=== PATIENT | female | born 1995 | race Caucasian/White ===

== ENCOUNTER 2018-10-03 18:54 | Observation (INO) | payer BC, SELFPAY ==
[2018-10-03] VITALS (12 sets, daily range): BP systolic 109–153; BP diastolic 60–99; PULSE 106–130; RESP 11–25; TEMP 36.8–39.2; O2SAT 95–100; BMI 28.3; BMI 30.7
--- NOTE | 2018-10-03 19:13 | DI.RAD.S_ITS ---
PROCEDURE: XR CHEST 2V INDICATIONS: Cough, high fever, SOB TECHNIQUE: 2 views of the chest were acquired. COMPARISON: None. FINDINGS: Surgical changes and devices: None. Lungs and pleura: Lung volumes are low. Mild right infrahilar alveolar opacity. The left lung is clear No pleural effusions or pneumothorax. Mediastinum: Mediastinal contours are normal. Heart size is normal. Bones and chest wall: No suspicious bony abnormalities. Soft tissues appear unremarkable. IMPRESSION: Right middle lobe alveolar opacities suggestive of pneumonia. No pleural effusion. Dictated by: Vera Rodgers M.D. on 10/03/2018 at 20:33 Approved by: Vera Rodgers M.D. on 10/03/2018 at 20:34
--- NOTE | 2018-10-03 19:20 | ED_ITS ---
HPI - SOB/Dyspnea <VILMA Cruz - Last Filed: 10/03/18 22:08> General Chief Complaint: Shortness of Breath/Dyspnea Stated Complaint: High fever, chest congestion, cough Time Seen by Provider: 10/03/18 19:03 Source: patient Mode of arrival: ambulatory Limitations: no limitations History of Present Illness 23-year-old female with a past medical history of asthma as a child, tonsil abscess within the last 2 weeks which was treated and resolved in the last week, now presents to the emergency department today complaining of a cough that has increased in the past 2 days with associated fever as high as 103.2F, shortness of breath, and decreased appetite for the past 2 days. Patient was on a cruise last week which she was taking steroids and clindamycin for her tonsil abscess that resolved. She states today she felt very short of breath which prompted her to come to the emergency department. Patient reports severe cough with clear mucus production, shortness of breath with exertion, and muscle aches. Patient states she is allergic to the pertussis vaccine and therefore was not given this vaccine after 1 administration as an infant. Denies chest pain, abdominal pain, vomiting, loose stools, swelling in ankles, or syncope. She did try taking 1 dose of [id number] cold medication, but this has not helped. MD Complaint: shortness of breath and cough Severity: moderate Consistency/Duration: constant Relieving factors: nothing Exacerbating factors: other (Deep breath) Known history of: asthma Associated symptoms: other (Fevers) Treatment prior to arrival: none Related Data Home Medications Medication Instructions Recorded Confirmed No Known Home Medications 10/03/18 10/03/18 Allergies Allergy/AdvReac Type Severity Reaction Status Date / Time Pertussis Vaccines Allergy Verified 10/03/18 19:00 red dye Allergy Verified 10/03/18 19:00 Review of Systems <VILMA Cruz - Last Filed: 10/03/18 22:08> Review of Systems REVIEW OF SYSTEMS: GENERAL: Complains of fevers, see HPI. HENT: No head trauma, hearing loss or sore throat. EYES: No loss of vision, double vision, eye pain, or irritation. CARDIOVASCULAR: No chest pain or syncope. RESPIRATORY: Complains of shortness of breath and cough, see HPI. GASTROINTESTINAL: Complains of decreased appetite, see HPI. GENITOURINARY: No flank pain or dysuria. MUSCULOSKELETAL: No pain, weakness, or deformities. INTEGUMENTARY: No rash, lesions, or pruritus. NEURO: No numbness, tingling, memory loss, or confusion. PSYCH: No behavior or mood changes. PFSH <VILMA Cruz - Last Filed: 10/03/18 22:08> Medical History Tonsillar abscess (Acute) Asthma (Chronic) Social History Smoking Status: Never smoker Social History household members: family Smoking Status: Never smoker Exam <VILMA Cruz - Last Filed: 10/03/18 22:08> Initial Vital Signs Initial Vital Signs: Vital Signs Temperature 102.5 F H 10/03/18 19:06 Pulse Rate 130 H 10/03/18 19:06 Respiratory Rate 22 10/03/18 19:06 Blood Pressure 153/99 H 10/03/18 19:06 Pulse Oximetry 100 10/03/18 19:06 PHYSICAL EXAMINATION: GENERAL: Well groomed, alert, and cooperative. Answers questions promptly and appropriately. Vital signs noted. HENT: Normocephalic, atraumatic. Ear canals patent, tympanic membranes normal without irritation or effusion, crisp light reflex present. Oral mucosa is pink and moist, no caries or lesions present. Pharynx erythematous. Uvula midline. Tonsils 1+. EYES: PERRLA, conjunctiva pink, sclera white, no periorbital swelling. NECK: Full range of motion, nontender. LYMPH: Slight swelling and tenderness to submandibular glands. CHEST: Normal to inspection and without deformities. CARDIOVASCULAR: S1 and S2 sounds normal. Regular rate and rhythm, no murmurs, clicks, or bruits. No pedal edema. RESPIRATORY: Slightly increased respiratory rate, trachea midline, airway patent. Constant barking cough noted during exam, patient cough small amount of clear mucus in to tissues. Decreased air movement in the bases, coarse lung sounds noted, difficult to assess for crackles or wheeze due to constant cough 1 patient takes a deep breath. No stridor, nasal flaring or accessory muscle use. GASTROINTESTINAL: Bowel sounds normoactive. Abdomen is soft and non-tender. No organomegaly. MUSCULOSKELETAL: Normal gait and coordination. Equal tone and mass bilaterally. EXTREMITIES: CMS intact. Moves all extremities. SKIN: Warm, dry, soft, appropriate color for ethnicity. No lesions, rashes, or wounds. NEURO: Alert and Oriented X 3. Good coordination. No ataxia, or sensory deficits, or cognitive issues. PSYCH: Appropriate affect and mood. <Sha Hassan DO - Last Filed: 10/04/18 01:27> Initial Vital Signs Initial Vital Signs: Vital Signs Temperature 102.5 F H 10/03/18 19:06 Pulse Rate 130 H 10/03/18 19:06 Respiratory Rate 22 10/03/18 19:06 Blood Pressure 153/99 H 10/03/18 19:06 Pulse Oximetry 100 10/03/18 19:06 Scores <VILMA Cruz - Last Filed: 10/03/18 22:08> CURB-65 Confusion: No BUN >19mg/dL (>7mmol/L): No Respiratory rate greater or equal to 30: No SBP <90mmHg or DBP less or equal to 60mmHg: No Age 65 or Older: No CURB-65 Total: 0 Score 0-1 Outpatient care, Score 2 Inpt vs. Obs, Score 3 or over Inpt admit with ICU for score of 4-5 Course <VILMA Cruz - Last Filed: 10/03/18 22:08> Course Narrative: . Orders Ordered: ED Orders 10/03/18 19:02 Urine Culture Stat Urine Microscopic Stat 10/03/18 19:13 XR chest 2V Stat 10/03/18 19:15 Bordetella pertussis PCR Stat 10/03/18 19:40 C-Reactive Protein Quant Routine Complete Blood Count AUTO DIFF Stat Comprehensive Metabolic Panel Stat Erythrocyte Sedimentation Rate Routine Influenza A and B by PCR Rapid Stat Lactate (Lactic Acid) Stat Procalcitonin Stat Troponin & CK Cardiac Panel Stat 10/03/18 20:17 Blood Culture Stat 10/03/18 22:49 Urine Drug Screen, Rapid Urgent 10/03/18 23:05 EKG-12 Lead Urgent 10/04/18 00:35 Blood Culture Stat 10/04/18 01:30 Blood Culture Stat Acetaminophen (Tylenol) 650 mg PO Q6HR PRN PRN Reason: As Needed for Fever/Mild Pain Albuterol (Ventolin) 2.5 mg INH RTTID PRN PRN Reason: Bronchospasm Benzonatate (Tessalon Perles) 100 mg PO TID PRN PRN Reason: Cough Ondansetron HCl (Zofran) 4 mg IV Q8HR PRN PRN Reason: Nausea And Vomiting Oseltamivir Phosphate (Tamiflu) 75 mg PO BID SANDRA Discontinued Medications Acetaminophen (Tylenol) 975 mg PO NOW ONE Stop: 10/03/18 20:26 Last Admin: 10/03/18 20:31 Dose: 975 mg Albuterol/Ipratropium (Duoneb) 3 ml INH NOW ONE Stop: 10/03/18 20:29 Last Admin: 10/03/18 20:42 Dose: 3 ml Sodium Chloride (Normal Saline 0.9%) 1,000 mls @ 1,000 mls/hr IV BOLUS ONE Stop: 10/03/18 20:12 Last Infusion: 10/03/18 20:30 Dose: 1,000 mls/hr Admin: 10/03/18 19:34 Dose: 1,000 mls/hr Sodium Chloride (Normal Saline 0.9%) 1,000 mls @ 1,000 mls/hr IV BOLUS ONE Stop: 10/03/18 21:24 Last Infusion: 10/03/18 21:41 Dose: 1,000 mls/hr Admin: 10/03/18 20:30 Dose: 1,000 mls/hr Levofloxacin (Levaquin) 750 mg in 150 mls @ 100 mls/hr IV NOW ONE Stop: 10/03/18 22:41 Last Infusion: 10/03/18 22:40 Dose: 100 mls/hr Admin: 10/03/18 21:30 Dose: 100 mls/hr Ibuprofen (Advil) 800 mg PO NOW ONE Stop: 10/03/18 19:14 Last Admin: 10/03/18 19:34 Dose: 800 mg Ondansetron HCl (Zofran) 4 mg IV NOW ONE Stop: 10/03/18 22:08 Last Admin: 10/03/18 22:09 Dose: 4 mg Oseltamivir Phosphate (Tamiflu) 75 mg PO NOW ONE Stop: 10/03/18 21:13 Last Admin: 10/03/18 21:30 Dose: 75 mg Reevaluation(s) Reevaluation #1: Patient remains tachycardic in the 120 after administration of 2 L of fluid, 800 mg of ibuprofen, and 975 mg of acetaminophen. Patient states she continues to feel short of breath with chest tightness even after administration of nebulizing treatment, decreased lung sounds remain Consultations Consultation #1: Patient staffed with Dr. Hassan who agrees patient should be admitted. Consultation #2: [address] [place] hospitalist for possible admission, due to continued tachycardia after interventions, multiple infections, and sustained shortness of breath.. 2199 spoke with hospitalist, ZOIE Mccauley agrees to admit patient. Vital Signs - 8 hr 10/03/18 19:06 10/03/18 19:34 10/03/18 20:22 Temperature 102.5 F H 102.5 F H 101 F H Pulse Rate 130 H Respiratory Rate 22 Blood Pressure Blood Pressure [Right Arm] 153/99 H Pulse Oximetry 100 10/03/18 20:31 10/03/18 20:32 10/03/18 20:35 Temperature 101 F H 101 F H Pulse Rate 113 H Respiratory Rate 21 Blood Pressure Blood Pressure [Right Arm] 130/88 Pulse Oximetry 99 10/03/18 21:00 10/03/18 21:18 10/03/18 21:39 Temperature Pulse Rate 125 H 126 H 126 H Respiratory Rate 25 H 11 L 17 Blood Pressure Blood Pressure [Right Arm] 125/60 125/60 109/63 Pulse Oximetry 95 95 99 10/03/18 22:10 10/03/18 22:30 10/03/18 23:10 Temperature 100.0 F H 98.3 F Pulse Rate 110 H 106 H Respiratory Rate 23 19 Blood Pressure 119/73 Blood Pressure [Right Arm] 110/72 Pulse Oximetry 100 98 <Sha Hassan, DO - Last Filed: 10/04/18 01:27> Orders Ordered: ED Orders 10/03/18 19:02 Urine Culture Stat Urine Microscopic Stat 10/03/18 19:13 XR chest 2V Stat 10/03/18 19:15 Bordetella pertussis PCR Stat 10/03/18 19:40 C-Reactive Protein Quant Routine Complete Blood Count AUTO DIFF Stat Comprehensive Metabolic Panel Stat Erythrocyte Sedimentation Rate Routine Influenza A and B by PCR Rapid Stat Lactate (Lactic Acid) Stat Procalcitonin Stat Troponin & CK Cardiac Panel Stat 10/03/18 20:17 Blood Culture Stat 10/03/18 22:49 Urine Drug Screen, Rapid Urgent 10/03/18 23:05 EKG-12 Lead Urgent 10/04/18 00:35 Blood Culture Stat 10/04/18 01:30 Blood Culture Stat Acetaminophen (Tylenol) 650 mg PO Q6HR PRN PRN Reason: As Needed for Fever/Mild Pain Albuterol (Ventolin) 2.5 mg INH RTTID PRN PRN Reason: Bronchospasm Benzonatate (Tessalon Perles) 100 mg PO TID PRN PRN Reason: Cough Ondansetron HCl (Zofran) 4 mg IV Q8HR PRN PRN Reason: Nausea And Vomiting Oseltamivir Phosphate (Tamiflu) 75 mg PO BID SANDRA Discontinued Medications Acetaminophen (Tylenol) 975 mg PO NOW ONE Stop: 10/03/18 20:26 Last Admin: 10/03/18 20:31 Dose: 975 mg Albuterol/Ipratropium (Duoneb) 3 ml INH NOW ONE Stop: 10/03/18 20:29 Last Admin: 10/03/18 20:42 Dose: 3 ml Sodium Chloride (Normal Saline 0.9%) 1,000 mls @ 1,000 mls/hr IV BOLUS ONE Stop: 10/03/18 20:12 Last Infusion: 10/03/18 20:30 Dose: 1,000 mls/hr Admin: 10/03/18 19:34 Dose: 1,000 mls/hr Sodium Chloride (Normal Saline 0.9%) 1,000 mls @ 1,000 mls/hr IV BOLUS ONE Stop: 10/03/18 21:24 Last Infusion: 10/03/18 21:41 Dose: 1,000 mls/hr Admin: 10/03/18 20:30 Dose: 1,000 mls/hr Levofloxacin (Levaquin) 750 mg in 150 mls @ 100 mls/hr IV NOW ONE Stop: 10/03/18 22:41 Last Infusion: 10/03/18 22:40 Dose: 100 mls/hr Admin: 10/03/18 21:30 Dose: 100 mls/hr Ibuprofen (Advil) 800 mg PO NOW ONE Stop: 10/03/18 19:14 Last Admin: 10/03/18 19:34 Dose: 800 mg Ondansetron HCl (Zofran) 4 mg IV NOW ONE Stop: 10/03/18 22:08 Last Admin: 10/03/18 22:09 Dose: 4 mg Oseltamivir Phosphate (Tamiflu) 75 mg PO NOW ONE Stop: 10/03/18 21:13 Last Admin: 10/03/18 21:30 Dose: 75 mg Vital Signs - 8 hr 10/03/18 19:06 10/03/18 19:34 10/03/18 20:22 Temperature 102.5 F H 102.5 F H 101 F H Pulse Rate 130 H Respiratory Rate 22 Blood Pressure Blood Pressure [Right Arm] 153/99 H Pulse Oximetry 100 10/03/18 20:31 10/03/18 20:32 10/03/18 20:35 Temperature 101 F H 101 F H Pulse Rate 113 H Respiratory Rate 21 Blood Pressure Blood Pressure [Right Arm] 130/88 Pulse Oximetry 99 10/03/18 21:00 10/03/18 21:18 10/03/18 21:39 Temperature Pulse Rate 125 H 126 H 126 H Respiratory Rate 25 H 11 L 17 Blood Pressure Blood Pressure [Right Arm] 125/60 125/60 109/63 Pulse Oximetry 95 95 99 10/03/18 22:10 10/03/18 22:30 10/03/18 23:10 Temperature 100.0 F H 98.3 F Pulse Rate 110 H 106 H Respiratory Rate 23 19 Blood Pressure 119/73 Blood Pressure [Right Arm] 110/72 Pulse Oximetry 100 98 MDM - SOB/Dyspnea <Elena VILMA Spence - Last Filed: 10/03/18 22:08> Medical Records Attestation: I reviewed the patient's medical records. Lab Data Attestation: I reviewed the patient's lab results. Result diagrams: 10/03/18 19:40 10/03/18 19:40 Lab Results 10/03/18 10/03/18 10/03/18 Range/Units 19:02 19:40 19:40 WBC 10.6 (4.5-11.0) X10^3/uL RBC 4.56 (4.0-5.2) X10^6/uL Hgb 14.1 (12.0-16.0) g/dL Hct 41.8 (36-46) % MCV 91.6 (80-100) fL MCH 30.8 (26-34) PG MCHC 33.7 (30-36) % RDW 13.5 (11.6-14.8) % Plt Count 219 (150-400) X10^3/uL Neut % (Auto) 79.9 H (50-75) % Lymph % (Auto) 8.8 L (25-40) % [place] % (Auto) 10.5 (3-14) % Eos % (Auto) 0.2 L (2-4) % Baso % (Auto) 0.6 (0-2) % Neut # (Auto) 8400 H (5106-4908) /uL Lymph # (Auto) 900 L (1613-1823) /uL [place] # (Auto) 1100 H (0-900) /uL Eos # (Auto) 0 (0-450) /uL Baso # (Auto) 100 (0-100) /uL ESR (0-20) MM/HR Sodium 139 (137-145) mmol/L Potassium 4.4 (3.4-5.1) mmol/L Chloride 98 (98-107) mmol/L Carbon Dioxide 29 (22-32) mmol/L BUN 4 L (7-17) mg/dL Creatinine 0.70 (0.52-1.04) mg/dL Estimated GFR > 60.0 (>60) mL/min BUN/Creatinine Ratio 5.7 L (6-22) Glucose 114 H (70-100) mg/dL Lactate (0.7-2.1) mmol/L Calcium 9.8 (8.4-10.2) mg/dL Total Bilirubin 0.6 (0.2-1.3) mg/dL AST 69 H (14-36) IU/L ALT 61 H (9-52) IU/L Alkaline Phosphatase 108 (38-126) U/L Total Creatine Kinase (30-135) U/L CK-MB (CK-2) CK-MB (CK-2) Rel Index Troponin I (0.01-0.034) ng/mL C-Reactive Protein (<1.0) mg/dL Total Protein 9.4 H (6.3-8.2) g/dL Albumin 4.9 (3.5-5.0) g/dL Globulin 4.5 H (1.7-4.1) g/dL Albumin/Globulin Ratio 1.1 (1.0-2.8) Procalcitonin (<0.5) ng/mL Urine RBC 0-1/hpf (0-5/HPF) Urine WBC 10-30/hpf H (0-5/HPF) Ur Squamous Epith Cells 1-5 /hpf (0-5/HPF) Ur Transition Epith Cell 1-5/hpf (0-5/HPF) Urine Bacteria Moderate (10-30) H (None) Ur Culture Indicated? Specimen cultured Urine Opiates Screen (Negative) Ur Oxycodone Screen (Negative) Urine Methadone Screen (Negative) Ur Barbiturates Screen (Negative) U Tricyclic Antidepress (Negative) Ur Phencyclidine Scrn (Negative) Ur Amphetamines Screen (Negative) U Methamphetamines Scrn (Negative) Ur MDMA Scrn (Ecstasy) (Negative) U Benzodiazepines Scrn (Negative) Urine Cocaine Screen (Negative) U Marijuana (THC) Screen (Negative) Influenza A & B (PCR) (Negative) 10/03/18 10/03/18 10/03/18 Range/Units 19:40 19:40 19:40 WBC (4.5-11.0) X10^3/uL RBC (4.0-5.2) X10^6/uL Hgb (12.0-16.0) g/dL Hct (36-46) % MCV (80-100) fL MCH (26-34) PG MCHC (30-36) % RDW (11.6-14.8) % Plt Count (150-400) X10^3/uL Neut % (Auto) (50-75) % Lymph % (Auto) (25-40) % [place] % (Auto) (3-14) % Eos % (Auto) (2-4) % Baso % (Auto) (0-2) % Neut # (Auto) (7973-0120) /uL Lymph # (Auto) (1002-3941) /uL [place] # (Auto) (0-900) /uL Eos # (Auto) (0-450) /uL Baso # (Auto) (0-100) /uL ESR (0-20) MM/HR Sodium (137-145) mmol/L Potassium (3.4-5.1) mmol/L Chloride (98-107) mmol/L Carbon Dioxide (22-32) mmol/L BUN (7-17) mg/dL Creatinine (0.52-1.04) mg/dL Estimated GFR (>60) mL/min BUN/Creatinine Ratio (6-22) Glucose (70-100) mg/dL Lactate 1.6 (0.7-2.1) mmol/L Calcium (8.4-10.2) mg/dL Total Bilirubin (0.2-1.3) mg/dL AST (14-36) IU/L ALT (9-52) IU/L Alkaline Phosphatase (38-126) U/L Total Creatine Kinase (30-135) U/L CK-MB (CK-2) CK-MB (CK-2) Rel Index Troponin I (0.01-0.034) ng/mL C-Reactive Protein (<1.0) mg/dL Total Protein (6.3-8.2) g/dL Albumin (3.5-5.0) g/dL Globulin (1.7-4.1) g/dL Albumin/Globulin Ratio (1.0-2.8) Procalcitonin 0.06 (<0.5) ng/mL Urine RBC (0-5/HPF) Urine WBC (0-5/HPF) Ur Squamous Epith Cells (0-5/HPF) Ur Transition Epith Cell (0-5/HPF) Urine Bacteria (None) Ur Culture Indicated? Urine Opiates Screen (Negative) Ur Oxycodone Screen (Negative) Urine Methadone Screen (Negative) Ur Barbiturates Screen (Negative) U Tricyclic Antidepress (Negative) Ur Phencyclidine Scrn (Negative) Ur Amphetamines Screen (Negative) U Methamphetamines Scrn (Negative) Ur MDMA Scrn (Ecstasy) (Negative) U Benzodiazepines Scrn (Negative) Urine Cocaine Screen (Negative) U Marijuana (THC) Screen (Negative) Influenza A & B (PCR) Positive, type a H (Negative) 10/03/18 10/03/18 10/03/18 Range/Units 19:40 19:40 19:40 WBC (4.5-11.0) X10^3/uL RBC (4.0-5.2) X10^6/uL Hgb (12.0-16.0) g/dL Hct (36-46) % MCV (80-100) fL MCH (26-34) PG MCHC (30-36) % RDW (11.6-14.8) % Plt Count (150-400) X10^3/uL Neut % (Auto) (50-75) % Lymph % (Auto) (25-40) % [place] % (Auto) (3-14) % Eos % (Auto) (2-4) % Baso % (Auto) (0-2) % Neut # (Auto) (8670-5883) /uL Lymph # (Auto) (2705-5400) /uL [place] # (Auto) (0-900) /uL Eos # (Auto) (0-450) /uL Baso # (Auto) (0-100) /uL ESR 28 H (0-20) MM/HR Sodium (137-145) mmol/L Potassium (3.4-5.1) mmol/L Chloride (98-107) mmol/L Carbon Dioxide (22-32) mmol/L BUN (7-17) mg/dL Creatinine (0.52-1.04) mg/dL Estimated GFR (>60) mL/min BUN/Creatinine Ratio (6-22) Glucose (70-100) mg/dL Lactate (0.7-2.1) mmol/L Calcium (8.4-10.2) mg/dL Total Bilirubin (0.2-1.3) mg/dL AST (14-36) IU/L ALT (9-52) IU/L Alkaline Phosphatase (38-126) U/L Total Creatine Kinase 30 (30-135) U/L CK-MB (CK-2) TNP CK-MB (CK-2) Rel Index TNP Troponin I < 0.012 (0.01-0.034) ng/mL C-Reactive Protein 4.2 H (<1.0) mg/dL Total Protein (6.3-8.2) g/dL Albumin (3.5-5.0) g/dL Globulin (1.7-4.1) g/dL Albumin/Globulin Ratio (1.0-2.8) Procalcitonin (<0.5) ng/mL Urine RBC (0-5/HPF) Urine WBC (0-5/HPF) Ur Squamous Epith Cells (0-5/HPF) Ur Transition Epith Cell (0-5/HPF) Urine Bacteria (None) Ur Culture Indicated? Urine Opiates Screen (Negative) Ur Oxycodone Screen (Negative) Urine Methadone Screen (Negative) Ur Barbiturates Screen (Negative) U Tricyclic Antidepress (Negative) Ur Phencyclidine Scrn (Negative) Ur Amphetamines Screen (Negative) U Methamphetamines Scrn (Negative) Ur MDMA Scrn (Ecstasy) (Negative) U Benzodiazepines Scrn (Negative) Urine Cocaine Screen (Negative) U Marijuana (THC) Screen (Negative) Influenza A & B (PCR) (Negative) 10/04/18 Range/Units 00:29 WBC (4.5-11.0) X10^3/uL RBC (4.0-5.2) X10^6/uL Hgb (12.0-16.0) g/dL Hct (36-46) % MCV (80-100) fL MCH (26-34) PG MCHC (30-36) % RDW (11.6-14.8) % Plt Count (150-400) X10^3/uL Neut % (Auto) (50-75) % Lymph % (Auto) (25-40) % [place] % (Auto) (3-14) % Eos % (Auto) (2-4) % Baso % (Auto) (0-2) % Neut # (Auto) (4797-8060) /uL Lymph # (Auto) (5046-3222) /uL [place] # (Auto) (0-900) /uL Eos # (Auto) (0-450) /uL Baso # (Auto) (0-100) /uL ESR (0-20) MM/HR Sodium (137-145) mmol/L Potassium (3.4-5.1) mmol/L Chloride (98-107) mmol/L Carbon Dioxide (22-32) mmol/L BUN (7-17) mg/dL Creatinine (0.52-1.04) mg/dL Estimated GFR (>60) mL/min BUN/Creatinine Ratio (6-22) Glucose (70-100) mg/dL Lactate (0.7-2.1) mmol/L Calcium (8.4-10.2) mg/dL Total Bilirubin (0.2-1.3) mg/dL AST (14-36) IU/L ALT (9-52) IU/L Alkaline Phosphatase (38-126) U/L Total Creatine Kinase (30-135) U/L CK-MB (CK-2) CK-MB (CK-2) Rel Index Troponin I (0.01-0.034) ng/mL C-Reactive Protein (<1.0) mg/dL Total Protein (6.3-8.2) g/dL Albumin (3.5-5.0) g/dL Globulin (1.7-4.1) g/dL Albumin/Globulin Ratio (1.0-2.8) Procalcitonin (<0.5) ng/mL Urine RBC (0-5/HPF) Urine WBC (0-5/HPF) Ur Squamous Epith Cells (0-5/HPF) Ur Transition Epith Cell (0-5/HPF) Urine Bacteria (None) Ur Culture Indicated? Urine Opiates Screen Positive H (Negative) Ur Oxycodone Screen Negative (Negative) Urine Methadone Screen Negative (Negative) Ur Barbiturates Screen Negative (Negative) U Tricyclic Antidepress Negative (Negative) Ur Phencyclidine Scrn Negative (Negative) Ur Amphetamines Screen Negative (Negative) U Methamphetamines Scrn Negative (Negative) Ur MDMA Scrn (Ecstasy) Negative (Negative) U Benzodiazepines Scrn Negative (Negative) Urine Cocaine Screen Negative (Negative) U Marijuana (THC) Screen Negative (Negative) Influenza A & B (PCR) (Negative) Point of Care Testing Test Results Negative Urine Dip Bedside Urine Glucose Negative Bedside Urine Bilirubin - Negative Bedside Urine Ketone - Negative Urine Specific [place] 1.025 Bedside Urine Occult Blood - Negative Bedside Urine pH 6.0 Bedside Urine Protein +/- 15 Bedside Urine Urobilinogen - Negative Bedside Urine Nitrite - Negative Bedside Urine Leukocytes ++ 125 Esterase Imaging Data Chest x-ray: Attestation: I personally reviewed and interpreted this imaging study as follows: Radiologist's impression: [address] [address] XRay Report Signed Patient: Jessica Ngo [facility]#: [id number] : 1995Acct:[id number] Age/Sex: 23 / FDate of Service: 10/03/18 Loc: ED Accession Number: [id number] Procedure: XR chest 2V Ordering Provider: Elena Spence PROCEDURE: XR CHEST 2V INDICATIONS: Cough, high fever, SOB TECHNIQUE: 2 views of the chest were acquired. COMPARISON: None. FINDINGS: Surgical changes and devices: None. Lungs and pleura: Lung volumes are low. Mild right infrahilar alveolar opacity. The left lung is clear No pleural effusions or pneumothorax. Mediastinum: Mediastinal contours are normal. Heart size is normal. Bones and chest wall: No suspicious bony abnormalities. Soft tissues appear unremarkable. IMPRESSION: Right middle lobe alveolar opacities suggestive of pneumonia. No pleural effusion. Dictated by: Vera Rodgers M.D. on 10/03/2018 at 20:33 Approved by: Vera Rodgers M.D. on 10/03/2018 at 20:34 MDM Narrative Medical decision making narrative: Suspect that patient has urinary tract infection, pneumonia, and influenza due to fevers, positive white blood cells on urinalysis as well as bacteria seen, positive influenza test, upper respiratory symptoms, and positive opacities on exam, as well as history of pneumonia and comorbidities such as asthma. Fall patient's lactic a procalcitonin remain within normal limits, her tachycardia has persisted throughout treatment of fever with ibuprofen, Tylenol, and after 2 L of fluid administration. Spoke with hospitalist, patient and manage for persistent tachycardia. <Sha Hassan DO - Last Filed: 10/04/18 01:27> Lab Data Lab Results 10/03/18 10/03/18 10/03/18 Range/Units 19:02 19:40 19:40 WBC 10.6 (4.5-11.0) X10^3/uL RBC 4.56 (4.0-5.2) X10^6/uL Hgb 14.1 (12.0-16.0) g/dL Hct 41.8 (36-46) % MCV 91.6 (80-100) fL MCH 30.8 (26-34) PG MCHC 33.7 (30-36) % RDW 13.5 (11.6-14.8) % Plt Count 219 (150-400) X10^3/uL Neut % (Auto) 79.9 H (50-75) % Lymph % (Auto) 8.8 L (25-40) % [place] % (Auto) 10.5 (3-14) % Eos % (Auto) 0.2 L (2-4) % Baso % (Auto) 0.6 (0-2) % Neut # (Auto) 8400 H (9356-1300) /uL Lymph # (Auto) 900 L (1965-6083) /uL [place] # (Auto) 1100 H (0-900) /uL Eos # (Auto) 0 (0-450) /uL Baso # (Auto) 100 (0-100) /uL ESR (0-20) MM/HR Sodium 139 (137-145) mmol/L Potassium 4.4 (3.4-5.1) mmol/L Chloride 98 (98-107) mmol/L Carbon Dioxide 29 (22-32) mmol/L BUN 4 L (7-17) mg/dL Creatinine 0.70 (0.52-1.04) mg/dL Estimated GFR > 60.0 (>60) mL/min BUN/Creatinine Ratio 5.7 L (6-22) Glucose 114 H (70-100) mg/dL Lactate (0.7-2.1) mmol/L Calcium 9.8 (8.4-10.2) mg/dL Total Bilirubin 0.6 (0.2-1.3) mg/dL AST 69 H (14-36) IU/L ALT 61 H (9-52) IU/L Alkaline Phosphatase 108 (38-126) U/L Total Creatine Kinase (30-135) U/L CK-MB (CK-2) CK-MB (CK-2) Rel Index Troponin I (0.01-0.034) ng/mL C-Reactive Protein (<1.0) mg/dL Total Protein 9.4 H (6.3-8.2) g/dL Albumin 4.9 (3.5-5.0) g/dL Globulin 4.5 H (1.7-4.1) g/dL Albumin/Globulin Ratio 1.1 (1.0-2.8) Procalcitonin (<0.5) ng/mL Urine RBC 0-1/hpf (0-5/HPF) Urine WBC 10-30/hpf H (0-5/HPF) Ur Squamous Epith Cells 1-5 /hpf (0-5/HPF) Ur Transition Epith Cell 1-5/hpf (0-5/HPF) Urine Bacteria Moderate (10-30) H (None) Ur Culture Indicated? Specimen cultured Urine Opiates Screen (Negative) Ur Oxycodone Screen (Negative) Urine Methadone Screen (Negative) Ur Barbiturates Screen (Negative) U Tricyclic Antidepress (Negative) Ur Phencyclidine Scrn (Negative) Ur Amphetamines Screen (Negative) U Methamphetamines Scrn (Negative) Ur MDMA Scrn (Ecstasy) (Negative) U Benzodiazepines Scrn (Negative) Urine Cocaine Screen (Negative) U Marijuana (THC) Screen (Negative) Influenza A & B (PCR) (Negative) 10/03/18 10/03/18 10/03/18 Range/Units 19:40 19:40 19:40 WBC (4.5-11.0) X10^3/uL RBC (4.0-5.2) X10^6/uL Hgb (12.0-16.0) g/dL Hct (36-46) % MCV (80-100) fL MCH (26-34) PG MCHC (30-36) % RDW (11.6-14.8) % Plt Count (150-400) X10^3/uL Neut % (Auto) (50-75) % Lymph % (Auto) (25-40) % [place] % (Auto) (3-14) % Eos % (Auto) (2-4) % Baso % (Auto) (0-2) % Neut # (Auto) (8657-6384) /uL Lymph # (Auto) (4248-3344) /uL [place] # (Auto) (0-900) /uL Eos # (Auto) (0-450) /uL Baso # (Auto) (0-100) /uL ESR (0-20) MM/HR Sodium (137-145) mmol/L Potassium (3.4-5.1) mmol/L Chloride (98-107) mmol/L Carbon Dioxide (22-32) mmol/L BUN (7-17) mg/dL Creatinine (0.52-1.04) mg/dL Estimated GFR (>60) mL/min BUN/Creatinine Ratio (6-22) Glucose (70-100) mg/dL Lactate 1.6 (0.7-2.1) mmol/L Calcium (8.4-10.2) mg/dL Total Bilirubin (0.2-1.3) mg/dL AST (14-36) IU/L ALT (9-52) IU/L Alkaline Phosphatase (38-126) U/L Total Creatine Kinase (30-135) U/L CK-MB (CK-2) CK-MB (CK-2) Rel Index Troponin I (0.01-0.034) ng/mL C-Reactive Protein (<1.0) mg/dL Total Protein (6.3-8.2) g/dL Albumin (3.5-5.0) g/dL Globulin (1.7-4.1) g/dL Albumin/Globulin Ratio (1.0-2.8) Procalcitonin 0.06 (<0.5) ng/mL Urine RBC (0-5/HPF) Urine WBC (0-5/HPF) Ur Squamous Epith Cells (0-5/HPF) Ur Transition Epith Cell (0-5/HPF) Urine Bacteria (None) Ur Culture Indicated? Urine Opiates Screen (Negative) Ur Oxycodone Screen (Negative) Urine Methadone Screen (Negative) Ur Barbiturates Screen (Negative) U Tricyclic Antidepress (Negative) Ur Phencyclidine Scrn (Negative) Ur Amphetamines Screen (Negative) U Methamphetamines Scrn (Negative) Ur MDMA Scrn (Ecstasy) (Negative) U Benzodiazepines Scrn (Negative) Urine Cocaine Screen (Negative) U Marijuana (THC) Screen (Negative) Influenza A & B (PCR) Positive, type a H (Negative) 10/03/18 10/03/18 10/03/18 Range/Units 19:40 19:40 19:40 WBC (4.5-11.0) X10^3/uL RBC (4.0-5.2) X10^6/uL Hgb (12.0-16.0) g/dL Hct (36-46) % MCV (80-100) fL MCH (26-34) PG MCHC (30-36) % RDW (11.6-14.8) % Plt Count (150-400) X10^3/uL Neut % (Auto) (50-75) % Lymph % (Auto) (25-40) % [place] % (Auto) (3-14) % Eos % (Auto) (2-4) % Baso % (Auto) (0-2) % Neut # (Auto) (5915-3851) /uL Lymph # (Auto) (2470-5717) /uL [place] # (Auto) (0-900) /uL Eos # (Auto) (0-450) /uL Baso # (Auto) (0-100) /uL ESR 28 H (0-20) MM/HR Sodium (137-145) mmol/L Potassium (3.4-5.1) mmol/L Chloride (98-107) mmol/L Carbon Dioxide (22-32) mmol/L BUN (7-17) mg/dL Creatinine (0.52-1.04) mg/dL Estimated GFR (>60) mL/min BUN/Creatinine Ratio (6-22) Glucose (70-100) mg/dL Lactate (0.7-2.1) mmol/L Calcium (8.4-10.2) mg/dL Total Bilirubin (0.2-1.3) mg/dL AST (14-36) IU/L ALT (9-52) IU/L Alkaline Phosphatase (38-126) U/L Total Creatine Kinase 30 (30-135) U/L CK-MB (CK-2) TNP CK-MB (CK-2) Rel Index TNP Troponin I < 0.012 (0.01-0.034) ng/mL C-Reactive Protein 4.2 H (<1.0) mg/dL Total Protein (6.3-8.2) g/dL Albumin (3.5-5.0) g/dL Globulin (1.7-4.1) g/dL Albumin/Globulin Ratio (1.0-2.8) Procalcitonin (<0.5) ng/mL Urine RBC (0-5/HPF) Urine WBC (0-5/HPF) Ur Squamous Epith Cells (0-5/HPF) Ur Transition Epith Cell (0-5/HPF) Urine Bacteria (None) Ur Culture Indicated? Urine Opiates Screen (Negative) Ur Oxycodone Screen (Negative) Urine Methadone Screen (Negative) Ur Barbiturates Screen (Negative) U Tricyclic Antidepress (Negative) Ur Phencyclidine Scrn (Negative) Ur Amphetamines Screen (Negative) U Methamphetamines Scrn (Negative) Ur MDMA Scrn (Ecstasy) (Negative) U Benzodiazepines Scrn (Negative) Urine Cocaine Screen (Negative) U Marijuana (THC) Screen (Negative) Influenza A & B (PCR) (Negative) 10/04/18 Range/Units 00:29 WBC (4.5-11.0) X10^3/uL RBC (4.0-5.2) X10^6/uL Hgb (12.0-16.0) g/dL Hct (36-46) % MCV (80-100) fL MCH (26-34) PG MCHC (30-36) % RDW (11.6-14.8) % Plt Count (150-400) X10^3/uL Neut % (Auto) (50-75) % Lymph % (Auto) (25-40) % [place] % (Auto) (3-14) % Eos % (Auto) (2-4) % Baso % (Auto) (0-2) % Neut # (Auto) (9081-9684) /uL Lymph # (Auto) (8131-5859) /uL [place] # (Auto) (0-900) /uL Eos # (Auto) (0-450) /uL Baso # (Auto) (0-100) /uL ESR (0-20) MM/HR Sodium (137-145) mmol/L Potassium (3.4-5.1) mmol/L Chloride (98-107) mmol/L Carbon Dioxide (22-32) mmol/L BUN (7-17) mg/dL Creatinine (0.52-1.04) mg/dL Estimated GFR (>60) mL/min BUN/Creatinine Ratio (6-22) Glucose (70-100) mg/dL Lactate (0.7-2.1) mmol/L Calcium (8.4-10.2) mg/dL Total Bilirubin (0.2-1.3) mg/dL AST (14-36) IU/L ALT (9-52) IU/L Alkaline Phosphatase (38-126) U/L Total Creatine Kinase (30-135) U/L CK-MB (CK-2) CK-MB (CK-2) Rel Index Troponin I (0.01-0.034) ng/mL C-Reactive Protein (<1.0) mg/dL Total Protein (6.3-8.2) g/dL Albumin (3.5-5.0) g/dL Globulin (1.7-4.1) g/dL Albumin/Globulin Ratio (1.0-2.8) Procalcitonin (<0.5) ng/mL Urine RBC (0-5/HPF) Urine WBC (0-5/HPF) Ur Squamous Epith Cells (0-5/HPF) Ur Transition Epith Cell (0-5/HPF) Urine Bacteria (None) Ur Culture Indicated? Urine Opiates Screen Positive H (Negative) Ur Oxycodone Screen Negative (Negative) Urine Methadone Screen Negative (Negative) Ur Barbiturates Screen Negative (Negative) U Tricyclic Antidepress Negative (Negative) Ur Phencyclidine Scrn Negative (Negative) Ur Amphetamines Screen Negative (Negative) U Methamphetamines Scrn Negative (Negative) Ur MDMA Scrn (Ecstasy) Negative (Negative) U Benzodiazepines Scrn Negative (Negative) Urine Cocaine Screen Negative (Negative) U Marijuana (THC) Screen Negative (Negative) Influenza A & B (PCR) (Negative) Point of Care Testing Test Results Negative Urine Dip Bedside Urine Glucose Negative Bedside Urine Bilirubin - Negative Bedside Urine Ketone - Negative Urine Specific [place] 1.025 Bedside Urine Occult Blood - Negative Bedside Urine pH 6.0 Bedside Urine Protein +/- 15 Bedside Urine Urobilinogen - Negative Bedside Urine Nitrite - Negative Bedside Urine Leukocytes ++ 125 Esterase Discharge Plan Departure Patient Disposition: Admitted As Inpatient Clinical Impression: Influenza A Community acquired pneumonia Qualifiers: Laterality: right Lung location: middle lobe of lung Qualified Code(s): J18.1 - Lobar pneumonia, unspecified organism Urinary tract infection Qualifiers: Urinary tract infection type: acute cystitis Hematuria presence: without hematuria Qualified Code(s): N30.00 - Acute cystitis without hematuria Discharge Date/Time: 10/03/18 22:35 Interventions: ED Discharge Assessment Last Done: 10/03/18 22:35 Admit Date/Time: 10/03/18 22:08 Admit Provider: Sandi Mccauley <Sha Hassan DO - Last Filed: 10/04/18 01:27> Cosign ED Attending Coslatiaature Attestation: I was immediately available in the department for consultation. Documentation has been reviewed. I agree with assessment and plan.
[2018-10-03 19:28] LABS: Bacteria Urine Moderate (10-30); Culture Indicated Urine Specimen Cultured; RBC Urine 0-1/HPF (0-5/HPF); Squamous Epithelial Cell Urine 1-5 /HPF (0-5/HPF); Transitional Epi Cells Urine 1-5/HPF (0-5/HPF); WBC Urine 10-30/HPF (0-5/HPF)
[2018-10-03] MEDS: SODIUM CHLORIDE 0.9% 1,000 ML 1000 ML IV ×2 (19:34→20:30)
[2018-10-03] MEDS: IBUPROFEN 400 MG TABLET 800 MG PO (19:34)
--- NOTE | 2018-10-03 20:00 | PC.NURSE ---
PT states productive cough and increased SOB for past 2 days with fever of 103.2 and decreased appetite, JAVED an muscle aches. Recently had a tonsil abscess treated with clindaymycin and steroids and resolved in the last week. Denies chest pain, abdominal pain, vomiting, loose stools, or syncope. She did try taking 1 dose of [id number] tylenol cold medication, but this has not helped. Pt is able to speak in full sentences alert and oriented x 3. Pt tachcardic HR 130's and febrile 102.5 in triage.
[2018-10-03 20:03] LABS: Add Manual Diff / Slide Review NO; Basophils Absolute Auto 100 /uL (0-100); Basophils Percent Auto 0.6 % (0-2); Eosinophils Absolute Auto 0 /uL (0-450); Eosinophils Percent Auto 0.2 % (2-4); Hematocrit 41.8 % (36-46); Hemoglobin 14.1 g/dL (12.0-16.0); Lymphocytes Absolute Auto 900 /uL (1100-4500); Lymphocytes Percent Auto 8.8 % (25-40); Mean Corpuscular HGB Conc 33.7 % (30-36); Mean Corpuscular Hemoglobin 30.8 PG (26-34); Mean Corpuscular Volume 91.6 fL (80-100); Monocytes Absolute Auto 1100 /uL (0-900); Monocytes Percent Auto 10.5 % (3-14); Neutrophils Absolute Auto 8400 /uL (1500-7000); Neutrophils Percent Auto 79.9 % (50-75); Platelet Count 219 X10^3/uL (150-400); Red Blood Cell Count 4.56 X10^6/uL (4.0-5.2); Red Cell Distribution Width 13.5 % (11.6-14.8); White Blood Cell Count 10.6 X10^3/uL (4.5-11.0)
[2018-10-03 20:14] LABS: Alanine Aminotransferase 61 IU/L (9-52); Albumin 4.9 g/dL (3.5-5.0); Albumin Globulin Ratio 1.1 (1.0-2.8); Alkaline Phosphatase 108 U/L (38-126); Aspartate Aminotransferase 69 IU/L (14-36); BUN Creatinine Ratio 5.7 (6-22); Bilirubin Total 0.6 mg/dL (0.2-1.3); Blood Urea Nitrogen 4 mg/dL (7-17); Calcium 9.8 mg/dL (8.4-10.2); Carbon Dioxide 29 mmol/L (22-32); Chloride 98 mmol/L (98-107); Estimated Glomerular Filt Rate > 60.0 mL/min (>60); Globulin 4.5 g/dL (1.7-4.1); Glucose 114 mg/dL (70-100); HEMOLYSIS < 15 (0-50); Potassium 4.4 mmol/L (3.4-5.1); Sodium 139 mmol/L (137-145); Total Protein 9.4 g/dL (6.3-8.2)
[2018-10-03 20:16] LABS: Lactate (Lactic Acid) 1.6 mmol/L (0.7-2.1)
[2018-10-03] MEDS: ACETAMINOPHEN 325 MG TABLET 975 MG PO (20:31)
[2018-10-03 20:36] LABS: Procalcitonin 0.06 ng/mL (<0.5)
[2018-10-03] MEDS: ALBUTEROL/IPRATROPIUM 3 ML AMPUL INH (20:42)
[2018-10-03] MEDS: OSELTAMIVIR 75 MG CAPSULE PO (21:30)
[2018-10-03] MEDS: levoFLOXacin 750 MG/150 ML PIGGYBACK 100 MG IV (21:30)
[2018-10-03] MEDS: ONDANSETRON 4 MG/2 ML INJ IV (22:09)
--- NOTE | 2018-10-03 22:13 | P.HP_ITS ---
History of Present Illness Date Patient Seen: 10/03/18 Time Patient Seen: 22:12 Chief complaint: High fever, chest congestion, cough Narrative: The patient is a 23-year-old female who presented to the ED with cough and chest congestion. Associated symptoms include sudden onset of fever (Tmax 103.2F), malaise, shortness of breath, pleurisy, nausea, night sweats, and diminished appetite. Denies myalgia, arthropathy, sore throat, chest pain, palpitations, dizziness, lightheadedness, syncopal events, peripheral edema, and abdomial pain. On approximatelly September 19 patient had sore throat, she was seen by her PCP, at that time there was a concern for a tonsillar abscess. Consequently, she was referred to an ENT. The ENT did not feel that she had an abscess. No imaging done for confirmation. Patient was started on a 6 day course of prednisone and a ten-day course of clindamycin 300 mg q.6 hours. The patient felt well while on the aforementioned therapy. Reports finishing the course of clindamycin on 10/01/2018. Two days ago patient has developed a cough with clear to white purulence. Denies hemoptysis. Twenty-four hours prior to ED presentation patient developed sudden onset of fever. No chills or rigors. Associated symptoms include malaise, headache, abdominal bloating, nausea, night sweats, dyspnea, orthopnea, chest tightness, and diminished appetite. Dyspnea is worse with exertion. Patient denies recent dental work. Denies history of recurrent strep throat. Notes in childhood cellulitis of face (left periauricular aspect). Patient works as a teacher. In the past week has taken a cruise to [place]. Denies other known exposure to ill contacts. ED evaluation and work-up (triage time 10/03/2018 @ 1900) Presenting c/o cough, fever, headache (09/09), chest congestion Temp 102.5F BP 153/99 HR 130 RR 22 SpO2 100% on RA GCS 15 Labs 10/03/2018 @ 1940 WBC 10.6 Hgb 14.1 Plt 219 Lactate 1.6 PCT 0.06 Na 139 K 4.4 Cl 98 Ca 9.8 Alb 4.9 Glu 114 CO2 29 BUN 4 Cr 0.7 BUN/Cr 5.7 AST 69 ALT 61 Alk Phos 108 T. Bili 0.6 urine negative B. Pertussis PCR negative Influenza A + Urinalysis... + leukocyte esterase, negative nitrite, WBC 10-30 HPF, bacteria moderte 10-30 HPF XR Chest... low lung volumes. Mild right infrahilarn (RML) alveolar opacity. The left lung is clear. No pleural effusions or pneumothorax. Blood Cx PENDING In the ED received ibuprofen 800 mg (1933), acetaminophen 975 (2030), oseltamivir 75 mg x1 (2129), levofloxacin 750 mg x1 (2129), ondansetron 4 mg IV (2208), and NS 1L bolus x2 (1933 and 2029). It was communicated the patient remained tachycardic despite 2 L IVF bolus. Patient History Medical History Tonsillar abscess (Acute) Asthma (Chronic) Social History Smoking Status: Never smoker Family & Social History Safety & Behavioral: Feels Safe in Current Yes Environment Been Physically Hurt or No Threatened By a Person Tobacco & Substance use: Smoking Status Never smoker Substance Use Type does not use Meds Home Medications Medication Instructions Recorded Confirmed Type No Known Home Medications 10/03/18 10/03/18 History Allergies Allergy/AdvReac Type Severity Reaction Status Date / Time Pertussis Vaccines Allergy Verified 10/03/18 19:00 red dye Allergy Verified 10/03/18 19:00 Review of Systems Review of Systems All systems reviewed & are unremarkable except as noted in HPI and below Exam Vital Signs (past 8 hours): - 10/03/18 19:06 10/03/18 19:34 10/03/18 20:22 Temperature 102.5 F H 102.5 F H 101 F H Pulse Rate 130 H Respiratory Rate 22 Blood Pressure [Right Arm] 153/99 H Pulse Oximetry 100 10/03/18 20:31 10/03/18 20:32 10/03/18 20:35 Temperature 101 F H 101 F H Pulse Rate 113 H Respiratory Rate 21 Blood Pressure [Right Arm] 130/88 Pulse Oximetry 99 10/03/18 21:00 10/03/18 21:18 10/03/18 21:39 Temperature Pulse Rate 125 H 126 H 126 H Respiratory Rate 25 H 11 L 17 Blood Pressure [Right Arm] 125/60 125/60 109/63 Pulse Oximetry 95 95 99 Oxygen Delivery Method Room Air Narrative Exam Narrative: Constitutional: NAD Neurologic: AOx3, no focal neurological deficits Head: NC, AT Eyes: PERRL, EOMI Ears: external ears normal, no otorrhea Nose: external nose normal, no rhinorrhea or epistaxis Throat: MMM, oropharynx w/o exudate Neck: no masses, lymphadenopathy, or JVD Chest / Respiratory: equal chest rise, labored with exertion, diminished Heart / CV: S1S2, tachycardic Abdomen / GI: round, NT, ND, + BS, no organomegaly : no suprapubic tenderness, no CVA Peripheral / Vascular: warm to touch, DP and PT pulses palpable, no edema Musc: full ROM of upper and lower extremities, adequate muscle tone and bulk Skin: no ecchymosis or suspicious lesions / ulcers Objective Labs Result Diagrams: 10/03/18 19:40 10/03/18 19:40 Labs: Laboratory Results - last 24 hr 10/03/18 10/03/18 10/03/18 19:02 19:40 19:40 WBC 10.6 RBC 4.56 Hgb 14.1 Hct 41.8 MCV 91.6 MCH 30.8 MCHC 33.7 RDW 13.5 Plt Count 219 Neut % (Auto) 79.9 H Lymph % (Auto) 8.8 L [place] % (Auto) 10.5 Eos % (Auto) 0.2 L Baso % (Auto) 0.6 Neut # (Auto) 8400 H Lymph # (Auto) 900 L [place] # (Auto) 1100 H Eos # (Auto) 0 Baso # (Auto) 100 Sodium 139 Potassium 4.4 Chloride 98 Carbon Dioxide 29 BUN 4 L Creatinine 0.70 Estimated GFR > 60.0 BUN/Creatinine Ratio 5.7 L Glucose 114 H Lactate Calcium 9.8 Total Bilirubin 0.6 AST 69 H ALT 61 H Alkaline Phosphatase 108 Total Protein 9.4 H Albumin 4.9 Globulin 4.5 H Albumin/Globulin Ratio 1.1 Procalcitonin Urine RBC 0-1/hpf Urine WBC 10-30/hpf H Ur Squamous Epith Cells 1-5 /hpf Ur Transition Epith Cell 1-5/hpf Urine Bacteria Moderate (10-30) H Ur Culture Indicated? Specimen cultured Influenza A & B (PCR) 10/03/18 10/03/1819 19:40 19:40 19:40 WBC RBC Hgb Hct MCV MCH MCHC RDW Plt Count Neut % (Auto) Lymph % (Auto) [place] % (Auto) Eos % (Auto) Baso % (Auto) Neut # (Auto) Lymph # (Auto) [place] # (Auto) Eos # (Auto) Baso # (Auto) Sodium Potassium Chloride Carbon Dioxide BUN Creatinine Estimated GFR BUN/Creatinine Ratio Glucose Lactate 1.6 Calcium Total Bilirubin AST ALT Alkaline Phosphatase Total Protein Albumin Globulin Albumin/Globulin Ratio Procalcitonin 0.06 Urine RBC Urine WBC Ur Squamous Epith Cells Ur Transition Epith Cell Urine Bacteria Ur Culture Indicated? Influenza A & B (PCR) Positive, type a H Assessment & Plan Assessment & Plan narrative: Right middle lobe pneumonia in the setting of influenza a virus, acute, present on admission, active - XR Chest... low lung volumes. Mild right infrahilarn (RML) alveolar opacity. The left lung is clear. No pleural effusions or pneumothorax. - PCT and lactate WNL, potentially viral pneumonia - Started on Levofloxacin in ED, will continue at this time, consider de-escala ting abx pending blood cx results - supprotive care, ie IVF, tessalon perles, analgesics Influenza A, acute, present on admission, active - influenza A PCR POSITIVE, started on oseltamivir 75 mg BID - supportive care Acute cystitis, uncomplicated, present on admission, active - Urinalysis... + leukocyte esterase, negative nitrite, WBC 10-30 HPF, bacteria moderte 10-30 HPF; Asymptomatic - urine culture pending, urine cx pending, currently on levofloxacin 750 mg QD - consider de-escalating empiric therapy pending blood and urine culture results Tachycardia, acute, present on admission, active Recently treated for sore throat, potentially tonsillar abscess. Patient remains tachycardic with HR in the 120s to 130s after 2L of NS bolus and temperature control. Concern for potential endocarditis. - Continuous tele monitoring - will get two more blood cultures x1 hour apart - ESR, CRP, Trop, UDS, and EKG results reviewed: ESR 28 CRP 4.2 Trop < 0.012 UDS + opiates - Will hold off on broadening empiric therapy pending blood culture results, at present time will continue to treat UTI and pneumonia SIRS, acute, present on admission, active Fever, tachycardia, and tachypnea on presentation. WBC, PCT, and lactate WNL. qSOFA score of 1. Patient finished a 10 day course of clindamycin 2 days ago. Chest x-ray suggest right middle lobe pneumonia. Urinalysis remarkable for UTI. Influenza A positive. - Treat underlying infection - IV fluids and empiric therapy as indicated - Monitor w/ a.m. labs Dyspnea, acute, present on admission, active - Multifactorial, in the setting of pneumonia and/or viral illness, worse with exertion, treat underlying etiology - Albuterol treatments q.4 hours as needed - Consider an echo if not improving Cough, acute, present on admission, active - Tessalarnulfo caraballo H/o tonsillar abscess, subacute (1 week ago), active - s/p 6 day course of prednisone and 10 day course of clindamycin - no prior imaging done, consider CT neck / soft tissue, if suspicion of recurre nce Patient resides in [place]. She is scheduled to go back in the next few days. VTE prophylaxis with SCDs Full code. Designates mother is surrogate decision maker. Patient does not take any medications with the exception of an occasional multivitamin. Home meds reviewed and reconciled. UDS is positive for opiates. However patient denies use.
[2018-10-03 22:47] LABS: C-Reactive Protein Quant 4.2 mg/dL (<1.0)
[2018-10-03 22:58] LABS: Erythrocyte Sedimentation Rate 28 MM/HR (0-20)
[2018-10-03 23:16] LABS: Creatine Kinase 30 U/L (30-135)
--- NOTE | 2018-10-03 23:19 | PC.NURSE ---
Pt arrived from ER @ 2250 Placed in droplet precautions due to +Inf. A Alert/oriented. Denies discomfort. Lungs congested, SpO2 96% RA Pt and family oriented to room and call system. Call light w/in reach.
[2018-10-03 23:28] LABS: Troponin I < 0.012 ng/mL (0.01-0.034)
[2018-10-04] VITALS (12 sets, daily range): BP systolic 122–134; BP diastolic 76–85; PULSE 89–115; RESP 16–20; TEMP 36.6–38; O2SAT 98–100
[2018-10-04 00:38] LABS: Urine Tetrahydrocannabinol Negative (Negative)
[2018-10-04 00:39] LABS: Urine Amphetamines Negative (Negative); Urine Barbiturates Negative (Negative); Urine Benzodiazepines Negative (Negative); Urine Cocaine Negative (Negative); Urine MDMA Negative (Negative); Urine Methadone Negative (Negative); Urine Methamphetamines Negative (Negative); Urine Morphine/Opi cutoff 2000 Positive (Negative); Urine Oxycodone Negative (Negative); Urine Phencyclidine Negative (Negative); Urine Tricyclic Antidepressant Negative (Negative)
[2018-10-04] MEDS: ACETAMINOPHEN 325 MG TABLET 650 MG PO ×2 (06:58→14:02)
[2018-10-04] MEDS: OSELTAMIVIR 75 MG CAPSULE PO ×2 (10:00→20:35)
--- NOTE | 2018-10-04 10:18 | CM.DANOTE ---
Patient is a 23 year old female who was admitted on 10/03/18 for High Fever, Cough/Congestion. Pt has [employer] OUT [place] [employer] for insurance and her [place]CP [place] of state. EMR was reviewed. Per MD, pt with fever and pneumonia and Influenza A and not medically stable for discharge yet today. Per RN, pt on droplet precautions and has supportive family bedside. 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 Preference is to d/c home to [place] when medically stable and pt and family do not anticipate any SW needs at d/c. Plan: SW to follow for likely pt d/c home with family when medically stable. SW to follow for any further identified discharge planning needs. HARRY Vega Discharge Planning/Care Management CM Discharge Assessment Start: 10/04/18 10:03 Freq: Status: Active Protocol: Document 10/04/18 10:03 (Rec: 10/04/18 10:17 [id number]) Discharge Planning Assessment Assigned Engine Mechanic HARRY Torrez Advance Directives? No Advance Directives on File No History Provided By Patient Medical Record Has Patient been admitted in last 30 No days? Prior Living Arrangements House Household Members family Type of transporation used prior to Drives own vehicle admit Independent with ADL's Yes Is patient alert and oriented? Yes Caregiver for Another No Comment Likely home with family support Barriers to Discharge No Discharge Plan Home Transportation Arrangement Family bedside and can likely provide transport Referrals Initiated None needed Review Status In Process Please Provide Date Initial DC 10/04/18 Assessment Was Performed Next Review Type Continued Stay Review
--- NOTE | 2018-10-04 12:18 | PC.NURSE ---
Addendum entered by Caitie Seaman R.N. 10/04/18 15:14: Pt had a temp of 100.4. Given tylenol 650mg. Pt voiding lots from ivf and drinking fluids. She is resting comfortably now. Original Note: Pt is comfortable. She denies pain/discomfort. BS cta, and 98% on ra. into see patient and mentioned that she may be able to discharge home later today.
--- NOTE | 2018-10-04 14:24 | PM.PN.1 ---
Subjective Date Patient Seen: 10/04/18 Interval history: 23-year-old female presented to the hospital with cough, shortness of breath and diagnosed with acute pneumonia, and influenza a. Patient continues to have fevers to 100.4. She has poor appetite but is ready to try to eat regular food. She has overall improved in terms of how she feels. She continues to be a bit tachycardic at rest patient is anxious to go home. Explained the rationale for treatment. Exam Vital Signs (past 8 hours): - 10/04/18 06:58 10/04/18 11:00 10/04/18 11:08 Temperature 99.3 F 97.8 F Pulse Rate 102 H Respiratory Rate 16 Blood Pressure 122/76 Pulse Oximetry 98 99 10/04/18 11:38 10/04/18 12:16 10/04/18 14:02 Temperature 100.4 F H Pulse Rate 92 H Respiratory Rate Blood Pressure Pulse Oximetry 99 98 Oxygen Delivery Method Room Air Oxygen Flow Rate 0 Narrative Exam Narrative: Pleasant female in no acute distress Lungs: Clear to auscultation Cardiac exam: Tachycardic regular rate and rhythm normal S1-S2 Abdomen: Soft and nontender Nondistended extremities: No edema Psychiatric exam patient is awake alert and appropriate, no confusion mentation intact Objective Labs Result Diagrams: 10/03/18 19:40 10/03/18 19:40 Labs: Laboratory Results - last 24 hr 10/03/18 10/03/18 10/03/18 19:02 19:40 19:40 WBC 10.6 RBC 4.56 Hgb 14.1 Hct 41.8 MCV 91.6 MCH 30.8 MCHC 33.7 RDW 13.5 Plt Count 219 Neut % (Auto) 79.9 H Lymph % (Auto) 8.8 L [place] % (Auto) 10.5 Eos % (Auto) 0.2 L Baso % (Auto) 0.6 Neut # (Auto) 8400 H Lymph # (Auto) 900 L [place] # (Auto) 1100 H Eos # (Auto) 0 Baso # (Auto) 100 ESR Sodium 139 Potassium 4.4 Chloride 98 Carbon Dioxide 29 BUN 4 L Creatinine 0.70 Estimated GFR > 60.0 BUN/Creatinine Ratio 5.7 L Glucose 114 H Lactate Calcium 9.8 Total Bilirubin 0.6 AST 69 H ALT 61 H Alkaline Phosphatase 108 Total Creatine Kinase CK-MB (CK-2) CK-MB (CK-2) Rel Index Troponin I C-Reactive Protein Total Protein 9.4 H Albumin 4.9 Globulin 4.5 H Albumin/Globulin Ratio 1.1 Procalcitonin Urine RBC 0-1/hpf Urine WBC 10-30/hpf H Ur Squamous Epith Cells 1-5 /hpf Ur Transition Epith Cell 1-5/hpf Urine Bacteria Moderate (10-30) H Ur Culture Indicated? Specimen cultured Urine Opiates Screen Ur Oxycodone Screen Urine Methadone Screen Ur Barbiturates Screen U Tricyclic Antidepress Ur Phencyclidine Scrn Ur Amphetamines Screen U Methamphetamines Scrn Ur MDMA Scrn (Ecstasy) U Benzodiazepines Scrn Urine Cocaine Screen U Marijuana (THC) Screen Influenza A & B (PCR) 10/03/18 10/03/18 10/03/18 19:40 19:40 19:40 WBC RBC Hgb Hct MCV MCH MCHC RDW Plt Count Neut % (Auto) Lymph % (Auto) [place] % (Auto) Eos % (Auto) Baso % (Auto) Neut # (Auto) Lymph # (Auto) [place] # (Auto) Eos # (Auto) Baso # (Auto) ESR Sodium Potassium Chloride Carbon Dioxide BUN Creatinine Estimated GFR BUN/Creatinine Ratio Glucose Lactate 1.6 Calcium Total Bilirubin AST ALT Alkaline Phosphatase Total Creatine Kinase CK-MB (CK-2) CK-MB (CK-2) Rel Index Troponin I C-Reactive Protein Total Protein Albumin Globulin Albumin/Globulin Ratio Procalcitonin 0.06 Urine RBC Urine WBC Ur Squamous Epith Cells Ur Transition Epith Cell Urine Bacteria Ur Culture Indicated? Urine Opiates Screen Ur Oxycodone Screen Urine Methadone Screen Ur Barbiturates Screen U Tricyclic Antidepress Ur Phencyclidine Scrn Ur Amphetamines Screen U Methamphetamines Scrn Ur MDMA Scrn (Ecstasy) U Benzodiazepines Scrn Urine Cocaine Screen U Marijuana (THC) Screen Influenza A & B (PCR) Positive, type a H 10/03/18 10/03/18 10/03/18 19:40 19:40 19:40 WBC RBC Hgb Hct MCV MCH MCHC RDW Plt Count Neut % (Auto) Lymph % (Auto) [place] % (Auto) Eos % (Auto) Baso % (Auto) Neut # (Auto) Lymph # (Auto) [place] # (Auto) Eos # (Auto) Baso # (Auto) ESR 28 H Sodium Potassium Chloride Carbon Dioxide BUN Creatinine Estimated GFR BUN/Creatinine Ratio Glucose Lactate Calcium Total Bilirubin AST ALT Alkaline Phosphatase Total Creatine Kinase 30 CK-MB (CK-2) TNP CK-MB (CK-2) Rel Index TNP Troponin I < 0.012 C-Reactive Protein 4.2 H Total Protein Albumin Globulin Albumin/Globulin Ratio Procalcitonin Urine RBC Urine WBC Ur Squamous Epith Cells Ur Transition Epith Cell Urine Bacteria Ur Culture Indicated? Urine Opiates Screen Ur Oxycodone Screen Urine Methadone Screen Ur Barbiturates Screen U Tricyclic Antidepress Ur Phencyclidine Scrn Ur Amphetamines Screen U Methamphetamines Scrn Ur MDMA Scrn (Ecstasy) U Benzodiazepines Scrn Urine Cocaine Screen U Marijuana (THC) Screen Influenza A & B (PCR) 10/04/18 00:29 WBC RBC Hgb Hct MCV MCH MCHC RDW Plt Count Neut % (Auto) Lymph % (Auto) [place] % (Auto) Eos % (Auto) Baso % (Auto) Neut # (Auto) Lymph # (Auto) [place] # (Auto) Eos # (Auto) Baso # (Auto) ESR Sodium Potassium Chloride Carbon Dioxide BUN Creatinine Estimated GFR BUN/Creatinine Ratio Glucose Lactate Calcium Total Bilirubin AST ALT Alkaline Phosphatase Total Creatine Kinase CK-MB (CK-2) CK-MB (CK-2) Rel Index Troponin I C-Reactive Protein Total Protein Albumin Globulin Albumin/Globulin Ratio Procalcitonin Urine RBC Urine WBC Ur Squamous Epith Cells Ur Transition Epith Cell Urine Bacteria Ur Culture Indicated? Urine Opiates Screen Positive H Ur Oxycodone Screen Negative Urine Methadone Screen Negative Ur Barbiturates Screen Negative U Tricyclic Antidepress Negative Ur Phencyclidine Scrn Negative Ur Amphetamines Screen Negative U Methamphetamines Scrn Negative Ur MDMA Scrn (Ecstasy) Negative U Benzodiazepines Scrn Negative Urine Cocaine Screen Negative U Marijuana (THC) Screen Negative Influenza A & B (PCR) Assessment & Plan Assessment & Plan narrative: ssessment & Plan narrative: Right middle lobe pneumonia in the setting of influenza a virus, acute, present on admission, active - XR Chest... low lung volumes. Mild right infrahilarn (RML) alveolar opacity. The left lung is clear. No pleural effusions or pneumothorax. - PCT and lactate WNL, potentially viral pneumonia - Started on Levofloxacin in ED, will continue at this time, consider de-escalating abx pending blood cx results - supprotive care, ie IVF, tessalon perles, analgesics Influenza A, acute, present on admission, active - influenza A PCR POSITIVE, started on oseltamivir 75 mg BID - supportive care Acute cystitis, uncomplicated, present on admission, active - Urinalysis... + leukocyte esterase, negative nitrite, WBC 10-30 HPF, bacteria moderte 10-30 HPF; Asymptomatic - urine culture pending, urine cx pending, currently on levofloxacin 750 mg QD - consider de-escalating empiric therapy pending blood and urine culture results Tachycardia, acute, present on admission, active Recently treated for sore throat, potentially tonsillar abscess. Patient remains tachycardic with HR in the 120s to 130s after 2L of NS bolus and temperature control. Concern for potential endocarditis. - Continuous tele monitoring - will get two more blood cultures x1 hour apart - ESR, CRP, Trop, UDS, and EKG results reviewed: ESR 28 CRP 4.2 Trop < 0.012 UDS + opiates - Will hold off on broadening empiric therapy pending blood culture results, at present time will continue to treat UTI and pneumonia Patient denies opiates. Consider repeat tox screen. Will continue treatment plan as above. Will switch diet to regular diet. DC SCDs as she is 19 for and fairly active. Will DC telemetry as well. SIRS, acute, present on admission, active Fever, tachycardia, and tachypnea on presentation. WBC, PCT, and lactate WNL. qSOFA score of 1. Patient finished a 10 day course of clindamycin 2 days ago. Chest x-ray suggest right middle lobe pneumonia. Urinalysis remarkable for UTI. Influenza A positive. - Treat underlying infection - IV fluids and empiric therapy as indicated - Monitor w/ a.m. labs Dyspnea, acute, present on admission, active - Multifactorial, in the setting of pneumonia and/or viral illness, worse with exertion, treat underlying etiology - Albuterol treatments q.4 hours as needed - Consider an echo if not improving Cough, acute, present on admission, active - Tessalon perles H/o tonsillar abscess, subacute (1 week ago), active - s/p 6 day course of prednisone and 10 day course of clindamycin - no prior imaging done, consider CT neck / soft tissue, if suspicion of recurrence Patient resides in [place]. She is scheduled to go back in the next few days. VTE prophylaxis with SCDs Full code. Designates mother is surrogate decision maker. Patient does not take any medications with the exception of an occasional multivitamin. Home meds reviewed and reconciled. UDS is positive for opiates. However patient denies use.
[2018-10-04 16:34] LABS: Urine Amphetamines Negative (Negative); Urine Barbiturates Negative (Negative); Urine Benzodiazepines Negative (Negative); Urine Cocaine Negative (Negative); Urine MDMA Negative (Negative); Urine Methadone Negative (Negative); Urine Methamphetamines Negative (Negative); Urine Morphine/Opi cutoff 2000 Negative (Negative); Urine Oxycodone Negative (Negative); Urine Phencyclidine Negative (Negative); Urine Tetrahydrocannabinol Negative (Negative); Urine Tricyclic Antidepressant Negative (Negative)
[2018-10-04] MEDS: levoFLOXacin 750 MG/150 ML PIGGYBACK 100 MG IV (20:35)
[2018-10-05 00:46] VITALS: O2SAT 100
--- NOTE | 2018-10-05 00:48 | PC.NURSE ---
2300- Safe handoff from evening RN. Pt sitting up in chair, droplet precautions in place for influenza A infection. IV abx scheduled, pt saline locked at this time. On RA w/ cont SpO2 in place, tolerating regular diet at this time. Pt's urine screen came back negative for opiates when checked again per prev RN report. Pt moves independently in room, denies any pain. 0010- No fever present at this time. 0250- New order for PO Claritin for nasal congestion
[2018-10-05] MEDS: LORATADINE 10 MG TABLET PO (02:47)
[2018-10-05 05:00] VITALS: BP 133/58; PULSE 93; RESP 16; TEMP 36.9; O2SAT 100
[2018-10-05 07:25] VITALS: BP 132/77; PULSE 103; RESP 16; TEMP 36.9; O2SAT 100
--- NOTE | 2018-10-05 08:09 | PM.DS.1 ---
History of Present Illness Date Patient Seen: 10/05/18 Chief complaint: High fever, chest congestion, cough Narrative: High fever, chest congestion, cough Narrative: The patient is a 23-year-old female who presented to the ED with cough and chest congestion. Associated symptoms include sudden onset of fever (Tmax 103.2F), malaise, shortness of breath, pleurisy, nausea, night sweats, and diminished appetite. Denies myalgia, arthropathy, sore throat, chest pain, palpitations, dizziness, lightheadedness, syncopal events, peripheral edema, and abdomial pain. On approximatelly September 19 patient had sore throat, she was seen by her PCP, at that time there was a concern for a tonsillar abscess. Consequently, she was referred to an ENT. The ENT did not feel that she had an abscess. No imaging done for confirmation. Patient was started on a 6 day course of prednisone and a ten-day course of clindamycin 300 mg q.6 hours. The patient felt well while on the aforementioned therapy. Reports finishing the course of clindamycin on 10/01/2018. Two days ago patient has developed a cough with clear to white purulence. Denies hemoptysis. Twenty-four hours prior to ED presentation patient developed sudden onset of fever. No chills or rigors. Associated symptoms include malaise, headache, abdominal bloating, nausea, night sweats, dyspnea, orthopnea, chest tightness, and diminished appetite. Dyspnea is worse with exertion. Patient denies recent dental work. Denies history of recurrent strep throat. Notes in childhood cellulitis of face (left periauricular aspect). Patient works as a ged teacher. In the past week has taken a cruise to [place]. Denies other known exposure to ill contacts. ED evaluation and work-up (triage time 10/03/2018 @ 1900) Presenting c/o cough, fever, headache (09/09), chest congestion Temp 102.5F BP 153/99 HR 130 RR 22 SpO2 100% on RA GCS 15 Discharge Providers Date of admission: 10/03/18 22:08 Discharge Date: 10/05/18 Discharge provider: Naida Pepe MD Summary Discharge Diagnosis: 1. Community acquired pneumonia 2. Influenza A 3. Acute cystitis Hospital Course: Patient was admitted to the hospital for fever cough and shortness of breath. She did test positive for influenza a. She was started empirically on antibiotics, she also received Tamiflu for her influenza a. Patient most recently had been treated for tonsillar abscess. She completed a course of clindamycin. She had a chest x-ray which confirmed a right middle lobe alveolar infiltrate. Patient's fever improved. She continued with a dry nonproductive cough. She had no further shortness of breath. Overall she felt significantly improved. The patient was deemed appropriate for discharge and arrangements were made for her to discharge home. The patient was traveling on a cruise to [place] and lives in [place]. She will follow up with her PCP provider upon return home. Status at Discharge Cognitive/behavioral status at discharge: oriented Functional status at discharge: independent ambulation Overall status at discharge: patient is back to baseline Time Spent with Patient Less than 30 minutes Exam Vital Signs (past 8 hours): - 10/05/18 00:46 10/05/18 05:00 Temperature 98.5 F Pulse Rate 93 H Respiratory Rate 16 Blood Pressure 133/58 L Pulse Oximetry 100 100 Oxygen Delivery Method Room Air Oxygen Flow Rate 0 Narrative Exam Narrative: Pleasant female in no obvious distress Lungs: Decreased breath sounds with occasional scattered right basilar crackles, no wheezing or rhonchi Cardiac exam: Regular rate and rhythm normal S1-S2 no rub or murmurs rubs or gallops Abdomen: Soft and nontender Extremities: No edema Objective Labs Result Diagrams: 10/03/18 19:40 10/03/18 19:40 Labs: Laboratory Results - last 24 hr 10/04/18 16:00 Urine Opiates Screen Negative Ur Oxycodone Screen Negative Urine Methadone Screen Negative Ur Barbiturates Screen Negative U Tricyclic Antidepress Negative Ur Phencyclidine Scrn Negative Ur Amphetamines Screen Negative U Methamphetamines Scrn Negative Ur MDMA Scrn (Ecstasy) Negative U Benzodiazepines Scrn Negative Urine Cocaine Screen Negative U Marijuana (THC) Screen Negative Discharge Plan Discharge Plan Discharge Problem: Community acquired pneumonia, Urinary tract infection, Influenza A Patient Disposition: Home Discharge comment: Follow-up with PCP upon return home Discharge Med Rec/Prescriptions Prescriptions: New oseltamivir [Tamiflu] 75 mg Capsule 75 mg PO BID 3 Days Qty: 6 RF: 0 acetaminophen 325 mg Tablet 650 mg PO Q6HR PRN (Reason: As Needed For Fever/Mild Pain) 5 Days RF: 0 loratadine 10 mg Tablet 10 mg PO DAILY PRN (Reason: Allergic Symptoms) 7 Days RF: 0 levofloxacin 750 mg tablet 750 mg PO DAILY Qty: 7 RF: 0 benzonatate 100 mg Capsule 100 mg PO TID 7 Days Qty: 21 RF: 0 No Action No Known Home Medications RF: 0 Provider Discharge Instructions Diet: Diet as Tolerated Activity: As tolerated Oxygen: Not indicated Discharge Data Attending Provider: Sandi Mccauley Admit Date/Time: 10/03/18 22:08
[2018-10-05] MEDS: OSELTAMIVIR 75 MG CAPSULE PO (08:19)
--- NOTE | 2018-10-05 09:49 | PC.NURSE ---
Pt alert and oriented, offers no overt diffficuty, eager to go home though tired. Family attentive at bedside. D/c instructions given and both Pt and Mother. Both asking appropriate questions. Pt readying for discharge.
--- NOTE | 2018-10-05 12:44 | CM.DPC ---
DCP Discharge Home Per MD, pt is medically stable to d/c home with family support today and no identified barriers to discharge. Per RN, no concerns noted at this time. Plan: Patient to d/c home via family POV today with plans set up to head back home to [place] in a couple days and no SW needs at this time. HARRY Vega
== END 2018-10-05 09:30 | disposition home or self-care (01) ==
LOC: ED 21:59 → AC 22:09
PROVIDERS: Internal Medicine; Admitting Provider Nurse Practitioner Gerontology; Emergency Provider Nurse Practitioner; Visit Provider Nurse Practitioner Gerontology
DX: J10.00 Influenza due to other identified influenza virus with unspecified type of pneumonia (principal); J18.1 Lobar pneumonia, unspecified organism; R06.02 Shortness of breath; R00.0 Tachycardia, unspecified; N30.00 Acute cystitis without hematuria; J45.909 Unspecified asthma, uncomplicated
CPT/HCPCS: 36415; 36591; 71046; 80053; 80305; 81003; 81015; 81025; 82550; 83605; 84145; 84484; 85025; 85651; 86140; 87040; 87086; 87400; 87798; 93005; 94760; 96361; 96365; 96366; 96375; 99284; 99285; G0378; J1956; J2405